=== PATIENT | female | born 1975 | race Caucasian/White ===

== ENCOUNTER 2018-03-25 00:51 | Outpatient (CLI) | payer OTHER, SELFPAY ==
--- NOTE | 2018-03-25 16:19 | DI.MAMMO_ITS ---
SYMPTOM/DIAGNOSIS: SCREENING, Z12.31 MAMMOGRAMS: Mammograms were interpreted according to the usual protocol including computer analysis with CAD system, tomosynthesis and C view imaging. Comparison is made with exam from 2016. The breasts are composed of heterogeneously dense fibroglandular tissue. Breast density, Category C. No suspicious masses or suspicious microcalcifications are seen. There has been no significant change. IMPRESSION: Category 1C, negative mammogram. Yearly screening mammography is recommended. [facility] ASSESSMENT OF FINDINGS: Negative. Category 1. Patient will receive a letter notifying them of these results. Bi-RADS category C. The breasts are heterogeneously dense, which may obscure small masses.
== END 2018-03-25 01:11 ==
PROVIDERS: PCP Emergency Medicine; Visit Provider Nurse Practitioner Family
DX: Z12.31 Encounter for screening mammogram for malignant neoplasm of breast (principal)
CPT/HCPCS: 77063; 77067

== ENCOUNTER 2018-04-26 11:40 | Outpatient (CLI) | payer OTHER, SELFPAY ==
--- NOTE | 2018-04-26 16:00 | DI.RAD_ITS ---
SYMPTOMS/DIAGNOSIS: PAIN RIGHT SHOULDER: The bony structures are normally mineralized. The joint space is intact. No soft tissue calcifications are identified. There is no evidence of a fracture or dislocation. If there is specific clinical question regarding the possibility of an internal derangement in this patient, then further assessment with MRI is recommended.
== END 2018-04-26 12:00 ==
PROVIDERS: PCP Emergency Medicine; Visit Provider Internal Medicine
DX: M25.511 Pain in right shoulder (principal)
CPT/HCPCS: 73030

== ENCOUNTER 2019-03-24 09:43 | Outpatient (REF) | payer OTHER, SELFPAY ==
--- NOTE | 2019-03-24 09:15 | PAPFT_PTH ---
PATIENT: Cuauhtemoc Angel LOC: N U#:[id number] AGE/SX: 43/F ROOM: RE03/24/[address]: TONA Flanagan : 1975 BED: DIS: 03/24/2019 SPEC #: [id number] RECD: 03/24/19 12:47 STATUS: KALLI REQ #: [id number] JYOTI: 03/24/19 09:[address]: Theresa Garcia DEPT: [facility] Cytology RECD BY: Vanesa Le ENTERED: 03/24/19 12:47 SP TYPE: PAPFT SKIP DR: Klever Carrero, Tissues: 1 - CX/ENDOCX FOR PAP SMEARS Procedures: PAP THIN PREP/UVM Screening HPV DNA PROBE Comments: [id number]
== END 2019-03-24 10:03 ==
LOC: LBN 09:43
PROVIDERS: PCP Emergency Medicine; Visit Provider Nurse Practitioner Family
DX: Z12.4 Encounter for screening for malignant neoplasm of cervix (principal)
CPT/HCPCS: 88142; 87624

== ENCOUNTER 2020-04-18 01:34 | Outpatient (CLI) | payer OTHER, SELFPAY ==
--- NOTE | 2020-04-18 06:45 | DI.MAMMO_ITS ---
EXAM: MAMMO SCREENING CLINICAL HISTORY: screening,Z12.39 TECHNIQUE: Mammograms were interpreted according to the usual protocol including computer analysis w [employer] CAD system, tomosynthesis and C-view imaging. COMPARISON: FINDINGS: The breasts are heterogeneously dense. No dominant mass or clumped microcalcification is identified in either breast. The current examination is compared with previous examinations including March 2018 and there has been no gross interval change in appearance in comparison with the prior studies. IMPRESSION: No specific evidence of malignancy at this time. Routine screening examinations are suggested at ye lee intervals in this age group according to the ACS ACR guidelines. BI-RADS Category 1 - Negative Breast Density - Category C - Heterogeneously dense
== END 2020-04-18 01:54 ==
PROVIDERS: PCP Emergency Medicine; Visit Provider Nurse Practitioner Family
DX: Z12.31 Encounter for screening mammogram for malignant neoplasm of breast (principal)
CPT/HCPCS: 77063; 77067

== ENCOUNTER 2022-03-20 06:12 | Day surgery (SDC) | payer OTHER, SELFPAY ==
[2022-03-20 06:15] VITALS: BP 131/91; PULSE 100; RESP 18; TEMP 36.4; O2SAT 98
[2022-03-20] MEDS: Lactated Ringers 1,000 ML 80 ML IV (06:40)
--- NOTE | 2022-03-20 07:10 | W.ANESPRE ---
General Info Date of Service Date Performed: 03/20/22 Height: 5 ft 2 in Weight: 68.9 kg Body Mass Index (BMI): 27.8 Surgical Procedure: Operation Date: 03/20/22 07:35 Proposed Procedure Side Surgeon jer Lema MD Meds Allergies and Home Medications Allergies Allergy/AdvReac Type Severity Reaction Status Date / Time prednisone Allergy Severe SWELLING Verified 03/20/22 06:29 Home Medication Medication Instructions Recorded Lactobacillus acidophilus 10 1 ea PO DAILY 07/19/15 billion cell capsule (Probiotic) omega-3 fatty acids-fish oil 300 1 ea PO DAILY 07/19/15 mg-1,000 mg capsule (Fish Oil) bisacodyl 5 mg tablet,delayed 5 mg PO ONCE #4 tabs 03/05/22 release (Dulcolax (bisacodyl)) polyethylene glycol 3350 17 17 g PO ONCE #238 grams 03/05/22 gram/dose oral powder Current Visit Medications: Current Medications Generic Name Dose Route Start Last Admin Trade Name Freq PRN Reason Stop Dose Admin Ringer's Solution 1,000 mls @ 80 mls/hr 03/20/22 06:00 03/20/22 06:40 IV 04/18/22 23:59 80 mls/hr INFUSION JULIETTE Administration IV Miscellaneous Supplies 1 each 03/20/22 06:00 Iv Access IV 04/18/22 23:59 DIRECTED JULIETTE Sodium Chloride 0 ml 03/20/22 06:00 Normal Saline Flush 10 Ml Syr IV 04/18/22 23:59 PRN PRN Sodium Chloride 0 ml 03/20/22 06:00 Normal Saline 10 Ml Vial IJ 04/18/22 23:59 DIRECTED PRN Sterile Water 0 ml 03/20/22 06:00 Water,Injection,Sterile 10 Ml Vial IJ 04/18/22 23:59 DIRECTED PRN PFSH Active Problems Active Problems: Problem Status Onset Code History of kidney stones 07/20/16 Z87.442 Menorrhagia N92.0 Surgical History Surgical History History of tonsillectomy and adenoidectomy Tobacco Smoking/Tobacco Use Status: Never Passive smoking exposure: No Alcohol Alcohol Intake: current Alcohol intake frequency: a few times a month Substance Use Substance use: Never Substance use type: does not use Prental History History 2 Para 2 Hx # Term Pregnancies Multiple births Hx # Pregnancies Ectopic pregnancies AB induced Hx Number of Living Children AB spontaneous Vital Signs and Lab Results Vital Signs Most Recent Vital Signs in EMR: Most Recent Vital Signs Temp Pulse Resp BP Pulse Ox 36.4 C L 100 H 18 131/91 H 98 03/20/22 06:15 03/20/22 06:15 03/20/22 06:15 03/20/22 06:15 03/20/22 06:15 Point of Care Results Point of Care Results: POC- Test(urine) Negative 03/20/22 06:38 Lab Results Blood Type / Crossmatch: No Data to Display Complete Blood Count: No Data to Display Complete Metabolic Panel: No Data to Display Liver Function Panel: No Data to Display Coagulation Panel: No Data to Display Cardiac Panel: No Data to Display Arterial Blood Gas: No Data to Display Venous Blood Gas: No Data to Display Pancreas Panel: No Data to Display Thyroid Panel: No Data to Display Infectious Disease: No Data to Display Blood Cultures: No Data to Display Toxicology Panel: No Data to Display Panel: No Data to Display Anesthesia Assessment and Plan Anesthesia History Personal History: No History of Anesthesia Complications Family History: No Family History of Anesthesia Complications Exercise Tolerance Exercise Tolerance: Metabolic Equivalents>4 Pertinent Negatives Pertinent Negatives: No Symptoms of GERD, No Major Cardiovascular Symptoms or Complaints and No Major Pulmonary Symptoms or Complaints Cardiac & Pulmonary Exam Cardiac Exam: Normal S1/S2 Heart Sounds Pulmonary Exam: Clear Bilateral Breath Sounds Implantable Cardiac Device Does patient have a Pacemaker or an ICD?: No Airway Exam Known Difficult Airway: No Mallampati Class: 1 Mouth Opening: Normal (> 3cm) Thyromental Distance: Greater than 3 cm Neck Range of Motion: Full ROM Neck Circumference: Normal Teeth Condition: Normal Dentition ASA Classification ASA Score: ASA 2 Emergency Case?: No NPO Status NPO Status: NPO Clears >2 hours, Solids >8 hours Status Status: Negative HCG Anesthesia Plan Resuscitation Status: Full Code Anesthesia Technique: General Anesthesia Airway Planned: Natural Airway Monitors Used: Standard Monitors
[2022-03-20 07:12] VITALS: BMI 27.8
[2022-03-20 08:05] VITALS: BP 130/84; PULSE 89; RESP 20; TEMP 36.6; O2SAT 98
--- NOTE | 2022-03-20 08:19 | COLE_ITS ---
Date of service: 03/20/22 Time of Service: 08:20 Colonoscopy Report Procedure Description: Procedures performed: 1. Colonoscopy Preoperative diagnosis: Screening colonoscopy Postoperative diagnosis: Normal colon, minimal external hemorrhoids Surgeon: Bob Lema Anesthesia: Shelia Indication for procedure: 46-year-old woman with no symptoms and no significant family history (grandmother had colon cancer -not increased risk). Findings: Normal terminal ileum. No polyps. Normal colon. Minimal external hemorrhoids noted Surveillance/follow-up recommendations: 10 years Complications: None Blood loss: Minimal Procedure in detail: Written consent was obtained from the patient who was in agreement with the risks, benefits and indications of the procedure.? We went to the endoscopy suite and laid the patient in left lateral decubitus position.? Anesthesia was administered which was tolerated well.? A timeout was performed and when we are all in agreement we began the procedure. Digital rectal exam and visual examination was performed and within normal limi ts.? A well?lubricated colonoscope was advanced without difficulty all the way to the cecum identified by the ileocecal valve, and triangular folds and appendiceal orifice.? Terminal ileum was normal. It was then slowly withdrawn.?? Retroflexion was performed in the rectum.? The findings/interventions are noted above. The scope was then removed and the patient tolerated the procedure well and was then taken back to the PACU in hemodynamically stable condition.
--- NOTE | 2022-03-20 08:25 | W.ANESPOSTOP ---
Postoperative Evaluation Date, Time and Location Date Performed: 03/20/22 Time Performed: 08:08 Patient Location: Day Surgery Unit Vital Signs Most Recent Imported Vital Signs: Most Recent Vital Signs Temp Pulse Resp BP Pulse Ox 36.6 C 89 20 130/84 98 03/20/22 08:05 03/20/22 08:05 03/20/22 08:05 03/20/22 08:05 03/20/22 08:05 Pain Score Most Recent Pain Score: Most Recent Pain Score Pain Level 0 03/20/22 08:05 Assessment Mental Status: Awake (Alert & Oriented to Patient Baseline) Airway and Respiratory Function: Patent airway with normal (patient baseline) respiratory exam Cardiovascular Function: Hemodynamically Stable Hydration Status: Adequately Hydrated Nausea & Vomiting: No Nausea or Vomiting Pain: Pt. Denies Any Pain Peripheral Nerve Block: Patient did not receive a nerve block
[2022-03-20 08:32] VITALS: BP 123/79; PULSE 74; RESP 18; TEMP 36.1; O2SAT 99
== END 2022-03-20 08:38 | disposition home or self-care (01) ==
PROVIDERS: PCP Nurse Practitioner Family; Visit Provider Student in an Organized Health Care Education/Training Program
PROC: 0DJD8ZZ Inspection of Lower Intestinal Tract, Via Natural or Artificial Opening Endoscopic (ICD-10-PCS; CPT 45378; principal; 2022-03-20 07:30)
DX: Z12.11 Encounter for screening for malignant neoplasm of colon (principal); K64.4 Residual hemorrhoidal skin tags
CPT/HCPCS: 45378; 81025

== ENCOUNTER 2022-09-01 14:12 | Outpatient (CLI) | payer OTHER, SELFPAY ==
--- NOTE | 2022-09-01 13:45 | DI.RAD_ITS ---
Exam(s) XR SHOULDER RT COMPLETE 2+V EXAM: XR SHOULDER RT COMPLETE 2+V CLINICAL HISTORY: Right shoulder pain. TECHNIQUE: 2D digital imaging was performed. COMPARISON: No exams were available for comparison FINDINGS: 3 views No evidence of fracture or dislocation. No abnormal calcifications in the soft tissues of the subacr omial space and the subacromial space is not diminished. Bone density normal. No osseous lesions. No degenerative changes in the glenohumeral joint nor within the AC joint. IMPRESSION: No significant radiograph findings in the right shoulder. DATA REPOSITORY: RADIATION DOSE DELIVERED:
== END 2022-09-01 14:13 | disposition home or self-care (01) ==
LOC: DIORS 14:13
PROVIDERS: PCP Nurse Practitioner Family; Referring Provider Nurse Practitioner Family; Visit Provider Student in an Organized Health Care Education/Training Program
DX: M25.511 Pain in right shoulder (principal)
CPT/HCPCS: 73030

== ENCOUNTER 2022-09-09 13:19 | Outpatient (CLI) | payer OTHER, SELFPAY ==
--- NOTE | 2022-09-09 09:30 | DI.MRI_ITS ---
Exam(s) MR UPPER JOINT RT WO EXAM: MR UPPER JOINT RT WO CLINICAL HISTORY: R SHOULDER PAIN,rt rotator cuff tear, m75.101. TECHNIQUE: Multiplanar multisequence MRI was performed. COMPARISON: CR XR SHOULDER RT COMPLETE 2+V from 09/01/2022 FINDINGS: BONES: There is no fracture or contusion pattern. JOINTS: Mild degenerative changes are seen at the acromioclavicular joint. The glenohumeral joint is normal. TENDONS: Supraspinatus: Unremarkable. Infraspinatus: Unremarkable. Subscapularis: Unremarkable. Teres Minor: Unremarkable. Biceps and [place]: Unremarkable. MUSCLES: Unremarkable. GLENOID LABRUM: Unremarkable on this noncontrast examination. There is a small 4 x 2 mm cyst adjacent to the anterior labrum. SOFT TISSUES: Unremarkable. LIGAMENTS: Unremarkable. OTHER: Subacromial and subdeltoid bursae are unremarkable. IMPRESSION: 1. No acute osseous abnormality. 2. No evidence of a labral or rotator cuff tear. 3. 4 x 2 mm paralabral cyst. DATA REPOSITORY:
== END 2022-09-09 13:39 ==
LOC: DI 13:20
PROVIDERS: PCP Nurse Practitioner Family; Visit Provider Student in an Organized Health Care Education/Training Program
DX: M25.511 Pain in right shoulder (principal); M71.311 Other bursal cyst, right shoulder
CPT/HCPCS: 73221

== ENCOUNTER 2022-11-10 11:17 | Outpatient (REF) | payer OTHER, SELFPAY ==
--- NOTE | 2022-11-10 10:30 | PAPFT_PTH ---
PATIENT: Cuauhtemoc Angel LOC: [facility] U#:[id number] AGE/SX: 47/F ROOM: RE11/10/[address]: Rhonda Zhong MD : 1975 BED: DIS: 11/10/2022 SPEC #: [id number] RECD: 11/10/22 13:02 STATUS: KALLI TANIA #: [id number] JYOTI: 11/10/22 10:[address]: Rhonda Zhong [facility]PT[facility] Cytology RECD BY: Vanesa Le ENTERED: 11/10/22 13:02 SP TYPE: PAPFT SKIP DR: Lazarus Campo, EBONIE Tissues: 1 - CX/ENDOCX FOR PAP SMEARS Procedures: PAP THIN PREP/UVM Screening HPV DNA PROBE Comments: [id number]
== END 2022-11-10 11:18 | disposition home or self-care (01) ==
LOC: LBN 11:17
PROVIDERS: PCP Nurse Practitioner Family; Visit Provider Obstetrics & Gynecology
DX: Z12.4 Encounter for screening for malignant neoplasm of cervix (principal)
CPT/HCPCS: 88142; 87624

== ENCOUNTER → 2022-11-27 00:07 | Outpatient (CLI) | payer OTHER, SELFPAY ==
--- NOTE | 2022-11-27 14:30 | DI.MAMMO_ITS ---
Exam(s) MAMMO SCREENING EXAM: MAMMO SCREENING CLINICAL HISTORY: screening TECHNIQUE: Bilateral full field digital CC and MLO mammographic images were obtained with 3D tomosyn thesis and utilizing computer aided detection (CAD). COMPARISON: Available for comparison. FINDINGS: Masses/Architectural Distortion: There is a 1.1 x 1.2 cm well-circumscribed nodule in the central rig ht breast seen on the MLO view. This appears new. This is best appreciated on the tomograms. No ar eas of architectural distortion are present. Microcalcifications: No suspicious pleomorphic-type are seen. Skin Thickening/Nipple Retraction: None. IMPRESSION: 1. New 1.1 x 1.2 cm well-circumscribed nodule in the central right breast. 2. Spot compression view and a right breast ultrasound are requested for further evaluation. BI-RADS Category 0 - Assessment Incomplete: Need additional imaging evaluation Breast Density - Category C - Heterogeneously dense Breast density category C or D implies that the patient has dense breast tissue. Dense breast tissue is very common and is not abnormal but dense breast tissue can make it harder to find cancer on a ma mmogram. Also, dense breast tissue may increase their breast cancer risk. This information about the result of the mammogram report was provided to the patient to raise their awareness. Use this report when you speak with the patient about their risks for breast cancer, which includes their family hist ory. At that time, you may recommend for more screening tests (Ultrasound or MRI) as they might be us eful based on their risk. A negative radiographic report should not delay biopsy if a dominant or clinically suspicious mass is present. Up to ten percent of cancers are not identified on mammography. A negative report may reinforce clinical impression. Adenosis and dense breasts may obscure an underlying neoplasm. False positive reports average 6 to 10%. Patient will receive a letter notifying them of these results.
== END ==
PROVIDERS: PCP Nurse Practitioner Family; Visit Provider Obstetrics & Gynecology
DX: Z12.31 Encounter for screening mammogram for malignant neoplasm of breast (principal)
CPT/HCPCS: 77063; 77067

== ENCOUNTER → 2022-12-03 00:21 | Outpatient (CLI) | payer OTHER, SELFPAY ==
--- NOTE | 2022-12-03 | DI.US_ITS ---
Exam(s) MG MAMMO SCREEN CALL BACK UNI US BREAST RT LIMITED EXAM: MG MAMMO SCREEN CALL BACK UNI and U/S breast RT limited CLINICAL HISTORY: NODULE CENTRAL RIGHT BREAST R92.8 ABNL MAMMO. TECHNIQUE: Craniocaudal and mediolateral oblique Full Field Digital Mammography views of the right b reast with Computer Aided Diagnosis followed by Tomosynthesis and right breast ultrasound. COMPARISON: Comparison is made with prior examinations. FINDINGS: Mammography/Tomosynthesis: Masses/Architectural Distortion: The well-circumscribed nodule in the central right breast is again s een on the additional views. There is a 2nd well-circumscribed nodule adjacent to it. No areas of a rchitectural distortion are seen. Microcalcifictions: No suspicious pleomorphic-type are seen. Skin Thickening/Nipple Retraction: None. Limited right breast US: Echotexture: There is dense fibroglandular tissue. Multiple cysts are seen. The largest cyst measur es 1.2 cm and is located at the 7 o'clock position 1 cm from the nipple. Shadowing: No suspicious foci. Cyst: Please see above under echotexture. Solid lesions: There is an area at the 1 o'clock position of the breast 1 cm from the nipple which gillespie s a lobulated appearance but on real-time imaging appears less concerning and may represent fibroglan dular tissue. Ductal dilation: None. IMPRESSION: 1. Multiple right breast cysts. Area at the 1 o'clock position 1 cm from the nipple which may repres ent fibroglandular tissue. 2. A 3 month follow-up right mammogram and right breast ultrasound are requested for re-evaluation. 3. The findings were discussed with the patient on the date of the examination. BI-RADS Category 3 - Probably Benign Finding: Recommend follow-up imaging in 3 months Breast Density - Category C - Heterogeneously dense Breast density Category C or D implies that the patient has dense breast tissue. Dense breast tissue can make it harder to find cancer on a mammogram. Dense breast tissue is also associated with an incr eased risk of breast cancer. This information about the result of the mammogram report was provided to the patient to raise their awareness. Use this report when you speak with the patient about their risks for breast cancer, which includes their family history. At that time, you may recommend additional screening tests (Ultrasoun d or MRI) as these tests may add significant information. A negative radiographic report should not delay biopsy if a dominant or clinically suspicious mass is present. Up to ten percent of cancers are not identified on mammography. A negative report may reinforce clinical impression. Adenosis and dense breasts may obscure an underlying neoplasm. False positive reports average 6 to 10%. Patient will receive a letter notifying them of these results.
== END ==
PROVIDERS: PCP Nurse Practitioner Family; Visit Provider Obstetrics & Gynecology
DX: Z12.31 Encounter for screening mammogram for malignant neoplasm of breast (principal); R92.8 Other abnormal and inconclusive findings on diagnostic imaging of breast
CPT/HCPCS: 76642; 77063; 77067

== ENCOUNTER → 2023-06-08 01:20 | Outpatient (CLI) | payer OTHER, SELFPAY ==
--- NOTE | 2023-06-08 | DI.MAMMO_ITS ---
Exam(s) MG MAMMO DIAGNOSTIC UNI US BREAST RT LIMITED EXAM: MG MAMMO DIAGNOSTIC UNI and U/S breast RT limited CLINICAL HISTORY: 3 MO F/U, F/U ABNL MAMMO, R92.8,RT BREAST FINDINGS/CYSTS. TECHNIQUE: Craniocaudal and mediolateral oblique Full Field Digital Mammography views of the right b reast with Computer Aided Diagnosis followed by Tomosynthesis and right breast ultrasound. COMPARISON: Comparison is made with prior examinations. FINDINGS: Mammography/Tomosynthesis: Masses/Architectural Distortion: There has been interval increase in size of a nodule in the central right breast previously identified to be a cyst. It measures 1.5 cm on the current examination. Thi s compares to 1.2 on the prior examination. No new nodules are seen. There are no areas of architec tural distortion. Microcalcifictions: No suspicious pleomorphic-type are seen. Skin Thickening/Nipple Retraction: None. Limited right breast US: Echotexture: Normal appearance of the glandular tissue. Shadowing: No suspicious foci. Cyst: Several cysts are seen in the right breast particularly at the 1 o'clock position. The largest measures 1 x 0.8 x 1.0 cm. Solid lesions: The area seen at the 12 to 1 o'clock position of the right breast 1 cm from the nipple appears stable compared to the prior examination. Ductal dilation: None. IMPRESSION: 1. No definite evidence of malignancy is noted. 2. A six-month follow-up mammogram and right breast ultrasound are requested for re-evaluation. 3. The findings were discussed with the patient on the date of the examination. BI-RADS Category 3 - 6 month - Probably Benign Finding: Recommend follow-up imaging in 6 months Breast Density - Category C - Heterogeneously dense Breast density Category C or D implies that the patient has dense breast tissue. Dense breast tissue can make it harder to find cancer on a mammogram. Dense breast tissue is also associated with an incr eased risk of breast cancer. This information about the result of the mammogram report was provided to the patient to raise their awareness. Use this report when you speak with the patient about their risks for breast cancer, which includes their family history. At that time, you may recommend additional screening tests (Ultrasoun d or MRI) as these tests may add significant information. A negative radiographic report should not delay biopsy if a dominant or clinically suspicious mass is present. Up to ten percent of cancers are not identified on mammography. A negative report may reinforce clinical impression. Adenosis and dense breasts may obscure an underlying neoplasm. False positive reports average 6 to 10%. Patient will receive a letter notifying them of these results.
== END ==
PROVIDERS: PCP Nurse Practitioner Family; Visit Provider Obstetrics & Gynecology
DX: R93.89 Abnormal findings on diagnostic imaging of other specified body structures (principal); Z12.31 Encounter for screening mammogram for malignant neoplasm of breast
CPT/HCPCS: 76642; 77061; 77065; G0279

== ENCOUNTER 2023-12-09 02:39 | Outpatient (CLI) | payer OTHER, SELFPAY ==
--- NOTE | 2023-12-09 07:15 | DI.US_ITS ---
Exam(s) US BREAST RT LIMITED MG MAMMO DIAGNOSTIC BI EXAM: MG MAMMO DIAGNOSTIC BI and U/S breast RT limited CLINICAL HISTORY: 6 mo f/u rt nodule/cyst,r92.8. TECHNIQUE: Craniocaudal and mediolateral oblique Full Field Digital Mammography views with Computer Aided Diagnosis followed by Tomosynthesis and right breast ultrasound. COMPARISON: US US BREAST RT LIMITED from 12/03/2022 US US BREAST RT LIMITED from 06/08/2023 US US BREAST RT LIMITED from 12/09/2023 FINDINGS: Mammography/Tomosynthesis: Masses/Architectural Distortion: There again seen well-circumscribed nodules in the medial right [address]. Previously these are shown to be cyst. There are no areas of architectural distortion. Microcalcifictions: No suspicious pleomorphic-type are seen. Skin Thickening/Nipple Retraction: None. Limited right breast US: Echotexture: Normal appearance of the glandular tissue. Shadowing: No suspicious foci. Cyst: There are cysts again seen several simple cysts present. The largest measures 1.7 cm and is lo cated at the 1 o'clock position of the right breast. Several smaller simple cysts are present. Solid lesions: There is again seen an area of decreased echogenicity at the 12 o'clock position of th e right breast 1 cm from the nipple. It has a similar size compared to the prior examination. Ductal dilation: None. IMPRESSION: 1. Persistent area of decreased echogenicity at the 12 o'clock position of the right breast which is similar in size. 2. Further evaluation with MRI of of the breast is recommended. 3. The findings were discussed with the patient on the date of the examination. BI-RADS Category 0 - Incomplete: Need additional imaging evaluation Breast Density - Category C - Heterogeneously dense Breast density Category C or D implies that the patient has dense breast tissue. Dense breast tissue can make it harder to find cancer on a mammogram. Dense breast tissue is also associated with an incr eased risk of breast cancer. This information about the result of the mammogram report was provided to the patient to raise their awareness. Use this report when you speak with the patient about their risks for breast cancer, which includes their family history. At that time, you may recommend additional screening tests (Ultrasoun d or MRI) as these tests may add significant information. A negative radiographic report should not delay biopsy if a dominant or clinically suspicious mass is present. Up to ten percent of cancers are not identified on mammography. A negative report may reinforce clinical impression. Adenosis and dense breasts may obscure an underlying neoplasm. False positive reports average 6 to 10%. Patient will receive a letter notifying them of these results.
== END 2023-12-09 02:59 ==
LOC: DI 02:39
PROVIDERS: PCP Nurse Practitioner Family; Visit Provider Obstetrics & Gynecology
DX: R92.8 Other abnormal and inconclusive findings on diagnostic imaging of breast (principal); Z12.31 Encounter for screening mammogram for malignant neoplasm of breast
CPT/HCPCS: 76642; 77062; 77066; G0279

== ENCOUNTER 2024-04-07 10:37 | Outpatient (REF) | payer OTHER, SELFPAY ==
[2024-04-07 15:35] LABS: Abs Immature Grans 0.02 10^3/uL (0.0-0.06); Absolute Basophil Count 0.03 10^3/uL (0.0-0.2); Absolute Eosinophil Count 0.05 10^3/uL (0.0-0.7); Absolute Lymphocyte Count 1.53 10^3/uL (1.2-3.4); Absolute Monocyte Count 0.47 10^3/uL (0.1-0.8); Absolute Neutrophil Count 2.79 10^3/uL (1.2-6.7); Basophils % 0.6 %; Immature Grans % 0.4 %; Lymphocytes % 31.3 %; MCH 30.4 pg (27.0-33.0); MCHC 33.3 % (32.0-36.0); MCV 91 fL (80-95); Monocytes % 9.6 %; Neutrophils % 57.1 %; Platelet Count 282 10^3/uL (130-400); RBC 4.93 10^6/uL (3.93-5.22); RDW 12.2 % (11.7-14.6); WBC 4.89 10^3/uL (4.4-10.8)
[2024-04-07 16:56] LABS: ALT 16 U/L (14-59); AST 17 U/L (15-37); Albumin 4.2 g/dL (3.4-5.0); Alkaline Phosphatase 74 U/L (46-116); Anion Gap 7.2 mmol/L (3-11); BUN 15 mg/dL (7-18); Bilirubin, Total 0.62 mg/dL (0.2-1.0); CO2 28.8 mmol/L (21.0-32.0); CREATININE 0.8 mg/dL (0.55-1.02); Calcium 9.1 mg/dL (8.5-10.1); Calculated LDL 136 mg/dL (<100); Chloride 107 mmol/L (98-107); Cholesterol 226 mg/dL (<200); Estimated GFR 90.83 (mL/min/1.73m2); Glucose 91 mg/dL (74-106); HDL Cholesterol 79 mg/dL (40-60); Potassium 4.3 mmol/L (3.5-5.1); Sodium 143 mmol/L (136-145); TSH (W/Ref FT4) 1.01 uIU/mL (0.36-3.74); Total Protein 6.7 g/dL (6.4-8.2); Triglyceride 55 mg/dL (<150)
[2024-04-07 17:46] LABS: Hemoglobin A1C 5.4 % (<5.7)
== END 2024-04-07 10:38 | disposition home or self-care (01) ==
LOC: NCHCN 10:37
PROVIDERS: Visit Provider Family Medicine
DX: Z13.29 Encounter for screening for other suspected endocrine disorder (principal); Z13.1 Encounter for screening for diabetes mellitus; Z13.220 Encounter for screening for lipoid disorders; Z00.00 Encounter for general adult medical examination without abnormal findings
CPT/HCPCS: 80053; 80061; 83036; 84443; 85025

== ENCOUNTER 2024-12-05 17:47 | Outpatient (REF) | payer OTHER, SELFPAY ==
--- NOTE | 2024-12-05 14:20 | PAPFT_PTH ---
PATIENT: Cuauhtemoc Angel LOC: [facility] U#:[id number] AGE/SX: 49/F ROOM: RE12/05/[address]: Rhonda Zhong MD : 1975 BED: DIS: 12/05/2024 SPEC #: [id number] RECD: 12/05/24 18:22 STATUS: KALLI MARIN #: [id number] JYOTI: 12/05/24 14:[address]: Rhonda Zhong DEPT: [facility] Cytology RECD BY: Vanesa Le Tissues: 1 - CX/ENDOCX FOR PAP SMEARS Procedures: PAP THIN PREP/UVM Screening HPV DNA PROBE Comments: [id number] (HPV 16 & 18/45)
== END 2024-12-05 17:48 | disposition home or self-care (01) ==
LOC: LBN 17:47
PROVIDERS: PCP Family Medicine; Visit Provider Obstetrics & Gynecology
DX: Z12.4 Encounter for screening for malignant neoplasm of cervix (principal)
CPT/HCPCS: 88142; 87624